=== PATIENT | male | born 2005 | race Caucasian/White ===

== ENCOUNTER 2023-07-06 14:46 | Emergency (ER) | payer OTHER ==
[~2023-07-06] VITALS: Ht 167.6 cm; Wt 58.0 kg
[2023-07-06 14:54] VITALS: O2SAT 99
[2023-07-06] MEDS ORDERED: IBUP-2437 MT (16:37)
[2023-07-06 16:45] VITALS: BP 116/78; PULSE 98; RESP 16; TEMP 98
== END 2023-07-06 16:46 | disposition home or self-care (01) ==
LOC: ER 14:46
DX: M54.2 Cervicalgia (principal); M25.522 Pain in left elbow; V49.59XA Passenger injured in collision with other motor vehicles in traffic accident, initial encounter; Y93.89 Activity, other specified; Y92.89 Other specified places as the place of occurrence of the external cause; Y99.8 Other external cause status
CPT/HCPCS: 73080; 99283